=== PATIENT | female | born 1960 | race Caucasian/White ===

== ENCOUNTER 2021-12-27 07:44 | Day surgery (SDC) | payer MEDICAID ==
[~2021-12-27] VITALS: Ht 160 cm; Wt 68.0 kg
[2021-12-27] MEDS ORDERED: fentaNYL CITRATE/PF 100 MCG/2 ML AMP ONE (10:46)
[2021-12-27] MEDS ORDERED: MIDAZOLAM HCL 5 MG/5 ML VIAL ONE (10:47)
[2021-12-27 14:13] VITALS: BP_SYST 124
== END 2021-12-27 12:15 | disposition home or self-care (01) ==
LOC: SMU 07:44 → SDS 07:44
PROVIDERS: ATTEND Internal Medicine
DX: R10.13 Epigastric pain (principal); K29.50 Unspecified chronic gastritis without bleeding; K59.04 Chronic idiopathic constipation; Z20.822 Contact with and (suspected) exposure to COVID-19; Z98.84 Bariatric surgery status; Z90.49 Acquired absence of other specified parts of digestive tract; Z80.0 Family history of malignant neoplasm of digestive organs
CPT/HCPCS: 36415 ×2; 43239; 87426; 87081; 88305; 88312; 88313; 99152; U0003; G0378; J2250; J3010